=== PATIENT | male | born 1980 | race African-American/Black ===

== ENCOUNTER 2021-03-17 12:16 | Emergency (ER) | payer MEDICAID ==
[~2021-03-17] VITALS: Ht 177.8 cm; Wt 79.0 kg
[2021-03-17] MEDS ORDERED: IBUPROFEN 600MG TABLET PO ONE (12:45)
[2021-03-17 12:47] LABS: CLARITY URINE CLEAR (CLEAR); COLOR URINE YELLOW (YELLOW); KETONES URINE NEGATIVE (NEGATIVE); LEUKOCYTE ESTERASE URINE NEGATIVE (NEGATIVE); NITRITE URINE NEGATIVE (NEGATIVE); OCCULT BLOOD URINE TRACE (NEGATIVE); PH URINE 6.5 (4.5-8.0); PROTEIN URINE NEGATIVE (NEGATIVE); SPECIFIC GRAVITY URINE 1.008 (1.005-1.030); UROBILINOGEN URINE 0.2 E.U./dL (0.2-1.0)
[2021-03-17 13:57] VITALS: BP 127/87
== END 2021-03-17 14:25 | disposition home or self-care (01) ==
LOC: ER 12:16
DX: N50.812 Left testicular pain (principal)
CPT/HCPCS: 76870; 81003; 93976; 99284

== ENCOUNTER 2022-05-15 13:03 | Emergency (ER) | payer MEDICAID ==
[~2022-05-15] VITALS: Ht 177.8 cm; Wt 87.0 kg
[2022-05-15] MEDS ORDERED: ACETAMINOPHEN 325MG TABLET PO ONE (16:15)
[2022-05-15] MEDS ORDERED: IBUPROFEN 400MG TABLET PO ONE (16:15)
[2022-05-15 16:21] VITALS: BP 120/77
[2022-05-15] MEDS ORDERED: ACETAMINOPHEN 500MG TABLET PO NR (17:00)
[2022-05-15] MEDS ORDERED: IBUP-2028 MT (17:46)
[2022-05-15] MEDS ORDERED: TOPUD MT (17:46)
== END 2022-05-15 18:45 | disposition home or self-care (01) ==
LOC: ER 13:03
DX: M79.10 Myalgia, unspecified site (principal); R50.9 Fever, unspecified; B34.9 Viral infection, unspecified; Z20.822 Contact with and (suspected) exposure to COVID-19
CPT/HCPCS: 71045; 87426; 87804; 99284; C9803